=== PATIENT | female | born 1985 | race American Indian/Alaskan Native ===

== ENCOUNTER 2019-01-12 10:50 | Emergency (ER) | payer OTHER ==
--- NOTE | 2019-01-12 11:53 | Event Note ---
ED Screening Note Date of service: 01/12/19 Time: 11:47 ED Screening Note: 33 y/o female comes in for ruQ pain. Has N/V. Was able to eat can peaches. Rash to right side. This initial assessment/diagnostic orders/clinical plan/treatment(s) is/are subject to change based on patients health status, clinical progression and re- assessment by fellow clinical providers in the ED. Further treatment and workup at subsequent clinical providers discretion. Patient/guardian urged not to elope from the ED as their condition may be serious if not clinically assessed and managed. Initial orders include:
[2019-01-12] MEDS ORDERED: TORADOL IV STA (12:57)
[2019-01-12] MEDS ORDERED: ZOFRAN IV STA (12:57)
[2019-01-12] MEDS ORDERED: NACL 0.9% 1000 ML 1,000 ML IV ONE (12:57)
[2019-01-12 14:16] LABS: Color,Urine Yellow (Yellow)
[2019-01-12 14:17] LABS: Bilirubin,Urine NEG (Negative); Blood,Urine MOD (Negative); Mucus,Urine 3+ /HPF
[2019-01-12 14:22] LABS: HCG Qualitative,Urine Negative (Negative)
[2019-01-12 14:30] LABS: Basophils % (Auto) 0.2 % (0.0-1.8); Eosinophils % (Auto) 1.9 % (0.0-4.3); Hematocrit 33.9 % (30.3-42.9); Hemoglobin 11.7 gm/dl (10.1-14.3); Lymphocytes # (Auto) 0.9 K/mm3 (1.2-5.4); Lymphocytes % (Auto) 34.3 % (13.4-35.0); Mean Corpuscular HGB Conc 35 % (30-34); Mean Corpuscular Volume 96 fl (79-97); Monocytes # (Auto) 0.3 K/mm3 (0.0-0.8); Monocytes % (Auto) 13.4 % (0.0-7.3); Platelet Count 206 K/mm3 (140-440); Red Blood Count 3.54 M/mm3 (3.65-5.03); Red Cell Distribution Width 12.9 % (13.2-15.2)
[2019-01-12 14:36] LABS: Alanine Aminotransferase 8 units/L (7-56); Albumin 3.9 g/dL (3.9-5); BUN/Creatinine Ratio 13; Blood Urea Nitrogen 8 mg/dL (7-17); Calcium 9.2 mg/dL (8.4-10.2); Hemolysis Index 19
--- NOTE | 2019-01-12 14:53 | Emergency Department Report ---
ED General Adult HPI - General Chief complaint: Abdominal Pain Stated complaint: ABD PAIN/RASH Time Seen by Provider: 01/12/19 11:47 Source: patient Mode of arrival: Ambulatory Limitations: No Limitations - History of Present Illness Initial comments: 33-year-old -N[place]ian female presents a day history of a vesicular flank rash and along the appears to be a dermatomal playing which is been causing some discomfort. She also reports having had having had vomited once today and having some issues with that. Discomfort is diminished dysuria as well. Post no fever, chills, sweats. No chest pain palpitations, no hemoptysis, hematemesis, hematochezia. -: Gradual Location: abdomen, pelvis Radiation: non-radiation Severity scale (0 -10): 0 Quality: aching, dull Consistency: constant Improves with: none Worsens with: none Associated Symptoms: denies: confusion, chest pain, fever/chills, headaches, loss of appetite, malaise, shortness of breath, syncope, weakness - Related Data Previous Rx's Medication Instructions Recorded Last Taken Type HYDROcodone/APAP 5-325 [[place] 1 each PO Q6HR PRN #12 tablet 08/08/13 Unknown Rx 5/325 mg] Metoclopramide HCl [Reglan] 10 mg PO Q4H #10 tablet 10/14/13 Unknown Rx Acyclovir [Zovirax Tab] 400 mg PO Q8H #30 tab 07/29/15 Unknown Rx Sulfamethoxazole/Trimethoprim 1 each PO BID #20 tablet 07/29/15 Unknown Rx [Bactrim DS TAB] Acyclovir [Zovirax Tab] 800 mg PO 5XD #40 tablet 01/12/19 Unknown Rx Phenazopyridine [Pyridium] 200 mg PO PC #9 tablet 01/12/19 Unknown Rx Sulfamethoxazole/Trimethoprim 1 each PO BID #20 tablet 01/12/19 Unknown Rx [Bactrim Ds] Allergies Allergy/AdvReac Type Severity Reaction Status Date / Time apple AdvReac "TONGUE Verified 01/12/19 11:23 BROKE OUT; ITCHING" ED Review of Systems ROS: Stated complaint: ABD PAIN/RASH Other details as noted in HPI Comment: All other systems reviewed and negative ED Past Medical Hx - Past Medical History Hx Hypertension: Yes Hx HIV: Yes Additional medical history: ECZEMA - Surgical History Additional Surgical History: right leg-femur fx. - Social History Smoking Status: Current Every Day Smoker Substance Use Type: None, Marijuana - Medications Home Medications: Home Medications Medication Instructions Recorded Confirmed Last Taken Type HYDROcodone/APAP 5-325 [[place] 1 each PO Q6HR PRN #12 tablet 08/08/13 Unknown Rx 5/325 mg] Metoclopramide HCl [Reglan] 10 mg PO Q4H #10 tablet 10/14/13 Unknown Rx Acyclovir [Zovirax Tab] 400 mg PO Q8H #30 tab 07/29/15 Unknown Rx Sulfamethoxazole/Trimethoprim 1 each PO BID #20 tablet 07/29/15 Unknown Rx [Bactrim DS TAB] Acyclovir [Zovirax Tab] 800 mg PO 5XD #40 tablet 01/12/19 Unknown Rx Phenazopyridine [Pyridium] 200 mg PO PC #9 tablet 01/12/19 Unknown Rx Sulfamethoxazole/Trimethoprim 1 each PO BID #20 tablet 01/12/19 Unknown Rx [Bactrim Ds] ED Physical Exam - General Limitations: No Limitations General appearance: alert, in no apparent distress - Head Head exam: Present: atraumatic, normocephalic - Eye Eye exam: Present: normal appearance - ENT ENT exam: Present: mucous membranes moist - Neck Neck exam: Present: normal inspection - Respiratory Respiratory exam: Present: normal lung sounds bilaterally. Absent: respiratory distress, stridor - Cardiovascular Cardiovascular Exam: Present: regular rate, normal rhythm. Absent: systolic murmur, diastolic murmur, rubs, gallop - GI/Abdominal GI/Abdominal exam: Present: soft, tenderness (some tenderness with palpation to the suprapubic area. Mild), normal bowel sounds, other (no no culling sign, no Rovsing, no g Chaves Warner). Absent: guarding, rebound - Extremities Exam Extremities exam: Present: normal inspection - Back Exam Back exam: Present: normal inspection. Absent: CVA tenderness (R), CVA tenderness (L) - Neurological Exam Neurological exam: Present: alert, oriented X3, CN II-XII intact - Psychiatric Psychiatric exam: Present: normal affect, normal mood - Skin Skin exam: Present: warm, dry, erythema, vesicles (vesicular rash along the right flank along one dermatome line. Some tenderness with palpation.). Absent: rash ED Course Vital Signs 01/12/19 01/12/19 01/12/19 11:47 13:15 13:29 Temperature 99 F 99.1 F Pulse Rate 86 70 Respiratory 18 16 18 Rate Blood Pressure 141/87 Blood Pressure 138/85 [Left] O2 Sat by Pulse 100 100 Oximetry - Reevaluation(s) Reevaluation #1: 01/12/19 14:59 She reports improvement in her overall feeling of decrease in the pain after then provided with medications and IV fluids. I did discuss the findings of her labs and plan of care. ED Medical Decision Making - Lab Data Result diagrams: 01/12/19 12:33 01/12/19 12:33 Critical care attestation.: If time is entered above; I have spent that time in minutes in the direct care of this critically ill patient, excluding procedure time. ED Disposition Clinical Impression: Shingles, UTI (urinary tract infection) Disposition: - TO HOME OR SELFCARE Is pt being admited?: No Does the pt Need Aspirin: No Condition: Stable Instructions: Abdominal Pain (ED), Phenazopyridine (By mouth), Urinary Tract Infection in Women (ED), Dysuria (ED), Herpes Zoster (ED) Prescriptions: Sulfamethoxazole/Trimethoprim [Bactrim Ds] 1 each PO BID #20 tablet Phenazopyridine [Pyridium] 200 mg PO PC #9 tablet Acyclovir [Zovirax Tab] 800 mg PO 5XD #40 tablet Referrals: CHITO HUNT MD [Primary Care Provider] - 3-5 Days
[2019-01-12 15:33] VITALS: BP 138/87
== END 2019-01-12 15:33 | disposition home or self-care (01) ==
LOC: ED 10:50
DX: N39.0 Urinary tract infection, site not specified (principal); B02.9 Zoster without complications; Z91.018 Allergy to other foods
CPT/HCPCS: 36415; 80053; 81001; 81025; 83690; 85025; 87086; 96361; 96374; 96375; 99283; J1885; J2405; J7030

== ENCOUNTER 2020-09-14 08:12 | Emergency (ER) | payer SELFPAY ==
[2020-09-14 08:33] VITALS: BP 129/99
[2020-09-14] MEDS ORDERED: IBUPROFEN 600 MG TAB PO ONE (10:18)
[2020-09-14] MEDS ORDERED: LIDOCAINE-MPF (1%) 10 MG/1 ML VIAL 5 ML INFILTRATI ONE (10:18)
[2020-09-14] MEDS ORDERED: traMADol 50 MG TAB PO ONE (10:18)
--- NOTE | 2020-09-14 10:55 | Emergency Department Report ---
Abscess Boil HPI - HPI Chief Complaint: Skin/Abscess/Foreign Body Stated Complaint: BOIL RT INNER THIGH Time Seen by Provider: 09/14/20 10:17 Duration: 3 Days Location: Other (Right side vaginal labia) History: Yes Pain, Yes Previous History, No Fever, No Purulent Drainage, No Numbness, No Foreign Body, No Insect Bite HPI: 34-year-old -Malaysian female presents to the emergency room for abscess to her right labia area x3 days. Patient states that it has been there is a small bump and has not bothered her but in the last 3 days it has become enlarged and more painful. Patient states that the pain is a 10 out of 10 she is not able to sit comfortably and walking makes it worse. Patient states that she is been sitting in warm baths and needs hot compress to the area. Patient denies any known drug allergies. Currently takes no medications on a daily basis. Does have a past medical history of herpes. Home Medications: Previous Rx's Medication Instructions Recorded Last Taken Type HYDROcodone/APAP 5-325 [[place] 1 each PO Q6HR PRN #12 tablet 08/08/13 Unknown Rx 5/325 mg] Metoclopramide HCl [Reglan] 10 mg PO Q4H #10 tablet 10/14/13 Unknown Rx Acyclovir [Zovirax Tab] 400 mg PO Q8H #30 tab 07/29/15 Unknown Rx Sulfamethoxazole/Trimethoprim 1 each PO BID #20 tablet 07/29/15 Unknown Rx [Bactrim DS TAB] Acyclovir [Zovirax Tab] 800 mg PO 5XD #40 tablet 01/12/19 Unknown Rx Phenazopyridine [Pyridium] 200 mg PO PC #9 tablet 01/12/19 Unknown Rx Sulfamethoxazole/Trimethoprim 1 each PO BID #20 tablet 01/12/19 Unknown Rx [Bactrim Ds] Ibuprofen [Motrin 800 MG tab] 800 mg PO Q8HR PRN #30 tablet 09/14/20 Unknown Rx cephALEXin [Keflex] 500 mg PO Q12HR 10 Days #20 cap 09/14/20 Unknown Rx traMADoL [Ultram 50 MG tab] 50 mg PO Q6HR PRN #12 tablet 09/14/20 Unknown Rx Allergies/Adverse Reactions: Allergies Allergy/AdvReac Type Severity Reaction Status Date / Time apple AdvReac "TONGUE Verified 01/12/19 11:23 BROKE OUT; ITCHING" ED Review of Systems ROS: Stated complaint: BOIL RT INNER THIGH Other details as noted in HPI ED Past Medical Hx - Past Medical History Previous Medical History?: Yes Hx Hypertension: Yes Hx HIV: Yes Additional medical history: ECZEMA - Surgical History Past Surgical History?: Yes Additional Surgical History: right leg-femur fx. - Social History Smoking Status: Current Every Day Smoker Substance Use Type: None, Marijuana - Medications Home Medications: Home Medications Medication Instructions Recorded Confirmed Last Taken Type HYDROcodone/APAP 5-325 [[place] 1 each PO Q6HR PRN #12 tablet 08/08/13 Unknown Rx 5/325 mg] Metoclopramide HCl [Reglan] 10 mg PO Q4H #10 tablet 10/14/13 Unknown Rx Acyclovir [Zovirax Tab] 400 mg PO Q8H #30 tab 07/29/15 Unknown Rx Sulfamethoxazole/Trimethoprim 1 each PO BID #20 tablet 07/29/15 Unknown Rx [Bactrim DS TAB] Acyclovir [Zovirax Tab] 800 mg PO 5XD #40 tablet 01/12/19 Unknown Rx Phenazopyridine [Pyridium] 200 mg PO PC #9 tablet 01/12/19 Unknown Rx Sulfamethoxazole/Trimethoprim 1 each PO BID #20 tablet 01/12/19 Unknown Rx [Bactrim Ds] Ibuprofen [Motrin 800 MG tab] 800 mg PO Q8HR PRN #30 tablet 09/14/20 Unknown Rx cephALEXin [Keflex] 500 mg PO Q12HR 10 Days #20 cap 09/14/20 Unknown Rx traMADoL [Ultram 50 MG tab] 50 mg PO Q6HR PRN #12 tablet 09/14/20 Unknown Rx ED Abscess Boil Physical Exam - Exam General: Vital signs noted. No distress. Alert and acting appropriately. I & D Note - I & D Note I & D Note: I & D Note: Under sterile field, I used Betadine to cleanse the area. I then used 2% lidocaine plain with 25-gauge 5/8 needle to inject area for anesthetic purposes. Total volume injected 3 mL. I then used an 11 blade to make a 1 cm incision. About 2 mL's of purulent drainage has been noted. I then used a hemostat to break the abscess formation. I then used sterile 0.9% normal saline flush to flush the wound with total volume of 40 mL used. I then put a 1/4 iodoform packing to the incision. A sterile 4 x 4 with tape has been applied as dressing. Bleeding is under control. Patient tolerated the procedure well with no signs of distress noted. ED Course Vital Signs 09/14/20 08:30 Temperature 98.0 F Pulse Rate 86 Respiratory 17 Rate Blood Pressure 129/99 [Right] O2 Sat by Pulse 100 Oximetry Critical care attestation.: If time is entered above; I have spent that time in minutes in the direct care of this critically ill patient, excluding procedure time. ED Medical Decision Making - Medical Decision Making 34-year-old -Malaysian female presents to the emergency room for abscess to her right labia area x3 days. Patient states that it has been there is a small bump and has not bothered her but in the last 3 days it has become enlarged and more painful. Patient states that the pain is a 10 out of 10 she is not able to sit comfortably and walking makes it worse. Patient states that she is been sitting in warm baths and needs hot compress to the area. Patient denies any known drug allergies. Currently takes no medications on a daily basis. Does have a past medical history of herpes. Tramadol ibuprofen. Incision and drainage of labial abscess. Patient be discharged home on Keflex and tramadol and ibuprofen. Instructions on how to do a sitz bath. Referral to [facility]. ED Disposition Clinical Impression: Abscess of labia majora Disposition: DC-01 TO HOME OR SELFCARE Is pt being admited?: No Does the pt Need Aspirin: No Condition: Stable Instructions: Skin Abscess, [id number], How to Take a Sitz Bath Additional Instructions: Complete antibiotics as prescribed. Pain medication as needed. Do sitz bath's. Follow-up with your [facility]. Prescriptions: cephALEXin [Keflex] 500 mg PO Q12HR 10 Days #20 cap Ibuprofen [Motrin 800 MG tab] 800 mg PO Q8HR PRN #30 tablet PRN Reason: Pain , Severe (7-10) traMADoL [Ultram 50 MG tab] 50 mg PO Q6HR PRN #12 tablet PRN Reason: Pain , Severe (7-10) Referrals: [facility] [Provider Group] - 3-5 Days [facility] [Provider Group] - 3-5 Days [facility] [Provider Group] - 3-5 Days Forms: Work/School Release Form(ED)
== END 2020-09-14 12:00 | disposition home or self-care (01) ==
LOC: ED 08:12
DX: N76.4 Abscess of vulva (principal); I10 Essential (primary) hypertension; Z21 Asymptomatic human immunodeficiency virus [HIV] infection status; F17.200 Nicotine dependence, unspecified, uncomplicated; F12.10 Cannabis abuse, uncomplicated; Z79.899 Other long term (current) drug therapy; Z91.018 Allergy to other foods
CPT/HCPCS: 99282

== ENCOUNTER 2021-09-16 08:52 | Emergency (ER) | payer OTHER ==
[2021-09-16 09:24] VITALS: BP 138/89
[2021-09-16] MEDS ORDERED: IBUPROFEN 600 MG TAB PO ONE (12:29)
[2021-09-16] MEDS ORDERED: SULFAMETHOXAZOLE/TRIMETHOPRIM 800/160MG DS TAB PO ONE (12:29)
[2021-09-16] MEDS ORDERED: HYDROcodone/ACETAMINOPHEN 7.5-325MG TAB PO ONE (12:29)
[2021-09-16] MEDS ORDERED: ONDANSETRON 4 MG ODT TAB PO ONE (12:30)
[2021-09-16] MEDS ORDERED: CLINDAMYCIN 300 MG CAP PO ONE (12:30)
--- NOTE | 2021-09-16 15:23 | Emergency Department Report ---
ED General Adult HPI - General Chief complaint: Skin/Abscess/Foreign Body Stated complaint: BOIL LT AXILLA Source: patient Mode of arrival: Ambulatory Limitations: No Limitations - History of Present Illness Initial comments: Patient is a 35-year-old -[place] female with a history of HIV, chronic eczema and hypertension who presented to the ED with complaint of acute onset persistent painful swollen mild erythematous maculopapular fluctuant rash on left axilla for the last 5 days. Patient states that the pain is constant and persistent and that in the last 2 days she has not been able to eat or sleep because of worsening pain. Patient denies dizziness, syncope, nausea and vomiting, fever, chills, cough, chest pain or shortness of breath, numbness and tingling or weakness of left arm and neck pain. MD Complaint: Left axilla painful swollen rash -: Sudden, days(s) (5) Location: upper extremity Radiation: non-radiation Severity scale (0 -10): 8 Quality: aching, sharp Consistency: constant Improves with: none Worsens with: none Associated Symptoms: denies other symptoms, rash (Swollen, painful left axillary rash). denies: confusion, chest pain, cough, diaphoresis, fever/chills, headaches, loss of appetite, malaise, nausea/vomiting, seizure, shortness of breath, syncope, weakness Treatments Prior to Arrival: none - Related Data Previous Rx's Medication Instructions Recorded Last Taken Type HYDROcodone/APAP 5-325 [[place] 1 each PO Q6HR PRN #12 tablet 08/08/13 Unknown Rx 5/325 mg] Metoclopramide HCl [Reglan] 10 mg PO Q4H #10 tablet 10/14/13 Unknown Rx Acyclovir [Zovirax Tab] 400 mg PO Q8H #30 tab 07/29/15 Unknown Rx Acyclovir [Zovirax Tab] 800 mg PO 5XD #40 tablet 01/12/19 Unknown Rx Phenazopyridine [Pyridium] 200 mg PO PC #9 tablet 01/12/19 Unknown Rx Sulfamethoxazole/Trimethoprim 1 each PO BID #20 tablet 01/12/19 Unknown Rx [Bactrim Ds] cephALEXin [Keflex] 500 mg PO Q12HR 10 Days #20 cap 09/14/20 Unknown Rx Clindamycin [Clindamycin CAP] 300 mg PO Q8H #30 cap 09/16/21 Unknown Rx Ibuprofen [Motrin 800 MG tab] 800 mg PO Q8HR PRN #30 tablet 09/16/21 Unknown Rx Sulfamethoxazole/Trimethoprim 1 each PO Q12H #20 tablet 09/16/21 Unknown Rx [Bactrim DS TAB] traMADoL [Ultram 50 MG tab] 50 mg PO Q6HR PRN #12 tablet 09/16/21 Unknown Rx Allergies Allergy/AdvReac Type Severity Reaction Status Date / Time apple AdvReac "TONGUE Verified 01/12/19 11:23 BROKE OUT; ITCHING" ED Review of Systems ROS: Stated complaint: BOIL LT AXILLA Other details as noted in HPI Constitutional: denies: chills, fever Eyes: denies: eye pain, eye discharge, vision change ENT: denies: ear pain, throat pain Respiratory: denies: cough, shortness of breath, wheezing Cardiovascular: denies: chest pain, palpitations Endocrine: no symptoms reported Gastrointestinal: denies: abdominal pain, nausea, diarrhea Genitourinary: denies: urgency, dysuria, discharge Musculoskeletal: denies: back pain, joint swelling, arthralgia Skin: rash (Swelling, painful mild erythematous rash on left axilla), change in color. denies: lesions Neurological: denies: headache, weakness, paresthesias Psychiatric: denies: anxiety, depression Hematological/Lymphatic: denies: easy bleeding, easy bruising ED Past Medical Hx - Past Medical History Hx Hypertension: Yes Hx HIV: Yes Additional medical history: ECZEMA - Surgical History Additional Surgical History: right leg-femur fx. - Social History Smoking Status: Current Every Day Smoker Substance Use Type: Marijuana - Medications Home Medications: Home Medications Medication Instructions Recorded Confirmed Last Taken Type HYDROcodone/APAP 5-325 [[place] 1 each PO Q6HR PRN #12 tablet 08/08/13 Unknown Rx 5/325 mg] Metoclopramide HCl [Reglan] 10 mg PO Q4H #10 tablet 10/14/13 Unknown Rx Acyclovir [Zovirax Tab] 400 mg PO Q8H #30 tab 07/29/15 Unknown Rx Acyclovir [Zovirax Tab] 800 mg PO 5XD #40 tablet 01/12/19 Unknown Rx Phenazopyridine [Pyridium] 200 mg PO PC #9 tablet 01/12/19 Unknown Rx Sulfamethoxazole/Trimethoprim 1 each PO BID #20 tablet 01/12/19 Unknown Rx [Bactrim Ds] cephALEXin [Keflex] 500 mg PO Q12HR 10 Days #20 cap 09/14/20 Unknown Rx Clindamycin [Clindamycin CAP] 300 mg PO Q8H #30 cap 09/16/21 Unknown Rx Ibuprofen [Motrin 800 MG tab] 800 mg PO Q8HR PRN #30 tablet 09/16/21 Unknown Rx Sulfamethoxazole/Trimethoprim 1 each PO Q12H #20 tablet 09/16/21 Unknown Rx [Bactrim DS TAB] traMADoL [Ultram 50 MG tab] 50 mg PO Q6HR PRN #12 tablet 09/16/21 Unknown Rx ED Physical Exam - General Limitations: No Limitations General appearance: alert, in no apparent distress - Head Head exam: Present: atraumatic, normocephalic, normal inspection - Eye Eye exam: Present: normal appearance, PERRL, EOMI Pupils: Present: normal accommodation - ENT ENT exam: Present: normal exam, normal orophraynx, mucous membranes moist, TM's normal bilaterally, normal external ear exam - Neck Neck exam: Present: normal inspection, full ROM. Absent: tenderness - Respiratory Respiratory exam: Present: normal lung sounds bilaterally. Absent: respiratory distress, wheezes, rales, chest wall tenderness, accessory muscle use, decreased breath sounds - Cardiovascular Cardiovascular Exam: Present: regular rate, normal rhythm, normal heart sounds. Absent: systolic murmur, diastolic murmur, rubs, gallop - GI/Abdominal GI/Abdominal exam: Present: soft, normal bowel sounds. Absent: tenderness, guarding, hyperactive bowel sounds, hypoactive bowel sounds, organomegaly, mass - Extremities Exam Extremities exam: Present: normal inspection, full ROM, normal capillary refill. Absent: tenderness, pedal edema, joint swelling, calf tenderness - Back Exam Back exam: Present: normal inspection, full ROM. Absent: tenderness, CVA tenderness (R), CVA tenderness (L), muscle spasm, paraspinal tenderness - Neurological Exam Neurological exam: Present: alert, oriented X3, CN II-XII intact, normal gait, reflexes normal - Psychiatric Psychiatric exam: Present: normal affect, normal mood - Skin Skin exam: Present: warm, dry, intact, normal color, rash (Swollen, tender erythematous maculopapular fluctuant rash on left axilla), erythema ED Course Vital Signs 09/16/21 09:19 Temperature 98.7 F Pulse Rate 94 H Respiratory 16 Rate Blood Pressure 138/89 O2 Sat by Pulse 100 Oximetry - I & D Left Arm Type of Procedure: Simple Site: Left axilla Blade Size: 11 I & D Procedure: betadine prep, sterile drapes applied, sterile dressing applied, gauze wick placed Progress: The area was cleaned with normal saline and Betadine solutions. Normal saline 1% solution was infiltrated around the area for local anesthesia. When anesthesia was fully achieved, the area was incised and drained with scalpel #11 blade. Copious thick purulent malodorous discharge drained from the wound. The wound was cleaned extensively and debrided with normal saline solutions, and the flocculation's were broken with hemostat. The wound was then packed with iodoform quarter inch, for a total of 35 cm. The wound was then dressed appropriately with 4 x 4 gauze and Tegaderm. Patient tolerated procedure well. ED Medical Decision Making - Medical Decision Making This is a 35-year-old -[place] female with a history of HIV, chronic eczema and hypertension who presented to the ED with complaint of acute onset persistent painful swollen mild erythematous maculopapular fluctuant rash on left axilla for the last 5 days. Patient states that the pain is constant and persistent and that in the last 2 days she has not been able to eat or sleep because of worsening pain. In the ED, patient is alert and oriented x3 and is not in any distress. Patient was treated for pain in the ED and also given initial oral antibiotics in the ED. The area was cleaned with normal saline and Betadine solutions. Normal saline 1% solution was infiltrated around the area for local anesthesia. When anesthesia was fully achieved, the area was incised and drained with scalpel #11 blade. Copious thick purulent malodorous discharge drained from the wound. The wound was cleaned extensively and debrided with normal saline solutions, and the flocculation's were broken with hemostat. The wound was then packed with iodoform quarter inch, for a total of 35 cm. The wound was then dressed appropriately with 4 x 4 gauze and Tegaderm. Patient tolerated procedure well. On reevaluation, patient's pain is well controlled with medication. Patient was discharged home on pain medications and antibiot ics and advised to return to the ED in 2 days for wound recheck and packing removal. Patient was advised to follow-up with her primary care physician in 7 to 10 days for reevaluation or return to the ED immediately if symptoms get worse. Patient was otherwise advised return to the ED immediately if symptoms get worse. - Differential Diagnosis Cellulitis; cutaneous abscess; folliculitis Critical care attestation.: If time is entered above; I have spent that time in minutes in the direct care of this critically ill patient, excluding procedure time. ED Disposition Clinical Impression: Cellulitis of left axilla, Cutaneous abscess of left axilla, Acute folliculitis Disposition: HOME / SELF CARE / HOMELESS Is pt being admited?: No Does the pt Need Aspirin: No Condition: Stable Instructions: Skin Abscess, [id number], Cellulitis, Adult, [id number], Incision and Drainage, Care After, Folliculitis Additional Instructions: Take medication with food, drink plenty of fluids and follow-up with the primary care physician in 7 to 10 days for reevaluation. Return to the ED in 2 days for wound recheck and packing removal. Otherwise return to the ED immediately if symptoms get worse. Prescriptions: Sulfamethoxazole/Trimethoprim [Bactrim DS TAB] 1 each PO Q12H #20 tablet Clindamycin [Clindamycin CAP] 300 mg PO Q8H #30 cap Ibuprofen [Motrin 800 MG tab] 800 mg PO Q8HR PRN #30 tablet PRN Reason: Pain , Severe (7-10) traMADoL [Ultram 50 MG tab] 50 mg PO Q6HR PRN #12 tablet PRN Reason: Pain , Severe (7-10) Referrals: KASEY VEGA MD [Primary Care Provider] - 3-5 Days [facility] [Outside] - 7-10 days Time of Disposition: 15:27 Print Language: [place]
== END 2021-09-16 15:52 | disposition home or self-care (01) ==
LOC: ED 08:52
DX: L03.112 Cellulitis of left axilla (principal); L02.412 Cutaneous abscess of left axilla; L73.9 Follicular disorder, unspecified; F17.200 Nicotine dependence, unspecified, uncomplicated; I10 Essential (primary) hypertension; F12.90 Cannabis use, unspecified, uncomplicated; Z91.018 Allergy to other foods
CPT/HCPCS: 99282; J3490; Q0162

== ENCOUNTER 2021-09-18 19:51 | Emergency (ER) | payer OTHER ==
--- NOTE | 2021-09-19 05:54 | Emergency Department Report ---
ED General Adult HPI - General Chief complaint: Skin/Abscess/Foreign Body Stated complaint: PACKING REMOVED BY CECILY HAN Source: patient Mode of arrival: Ambulatory Limitations: No Limitations - History of Present Illness Initial comments: Patient is a 35-year-old -[place] female with history of chronic eczema and HIV who presents to the ED for wound recheck and packing removal from a previously incised and drained abscess wound in the left axilla 2 days ago. Patient is currently taking oral antibiotics and pain medications as needed. Patient states that the pain has significantly improved such that she is able to perform active range of motion of the left arm and also able to walk at her job with no difficulties. Patient denies fever, chills, nausea and vomiting, dizziness, syncope, headache, chest pain or shortness of breath, neck pain or numbness and tingling or weakness of upper extremities bilaterally. MD Complaint: left axilla abscess wound recheck -: Sudden, week(s) (1) Location: upper extremity (left axilla) Radiation: non-radiation Severity scale (0 -10): 7 Quality: aching, dull Consistency: constant Improves with: none Worsens with: movement Associated Symptoms: denies other symptoms, rash (Open abscess wound on left axilla, previously packed with iodoform gauze). denies: confusion, chest pain, cough, diaphoresis, fever/chills, headaches, malaise, nausea/vomiting Treatments Prior to Arrival: NSAID, other (Oral antibiotics) - Related Data Previous Rx's Medication Instructions Recorded Last Taken Type HYDROcodone/APAP 5-325 [[place] 1 each PO Q6HR PRN #12 tablet 08/08/13 Unknown Rx 5/325 mg] Metoclopramide HCl [Reglan] 10 mg PO Q4H #10 tablet 10/14/13 Unknown Rx Acyclovir [Zovirax Tab] 400 mg PO Q8H #30 tab 07/29/15 Unknown Rx Acyclovir [Zovirax Tab] 800 mg PO 5XD #40 tablet 01/12/19 Unknown Rx Phenazopyridine [Pyridium] 200 mg PO PC #9 tablet 01/12/19 Unknown Rx Sulfamethoxazole/Trimethoprim 1 each PO BID #20 tablet 01/12/19 Unknown Rx [Bactrim Ds] cephALEXin [Keflex] 500 mg PO Q12HR 10 Days #20 cap 09/14/20 Unknown Rx Clindamycin [Clindamycin CAP] 300 mg PO Q8H #30 cap 09/16/21 Unknown Rx Ibuprofen [Motrin 800 MG tab] 800 mg PO Q8HR PRN #30 tablet 09/16/21 Unknown Rx Sulfamethoxazole/Trimethoprim 1 each PO Q12H #20 tablet 09/16/21 Unknown Rx [Bactrim DS TAB] traMADoL [Ultram 50 MG tab] 50 mg PO Q6HR PRN #12 tablet 09/16/21 Unknown Rx Allergies Allergy/AdvReac Type Severity Reaction Status Date / Time apple AdvReac "TONGUE Verified 01/12/19 11:23 BROKE OUT; ITCHING" ED Review of Systems ROS: Stated complaint: PACKING REMOVED BY CECILY HAN Other details as noted in HPI Constitutional: denies: chills, fever Eyes: denies: eye pain, eye discharge, vision change ENT: denies: ear pain, throat pain Respiratory: denies: cough, shortness of breath, wheezing Cardiovascular: denies: chest pain, palpitations Endocrine: no symptoms reported Gastrointestinal: denies: abdominal pain, nausea, diarrhea Genitourinary: denies: urgency, dysuria, discharge Musculoskeletal: denies: back pain, joint swelling, arthralgia Skin: rash (Open abscess wound with iodoform packing in the left axilla). denies: lesions Neurological: denies: headache, weakness, paresthesias Psychiatric: denies: anxiety, depression Hematological/Lymphatic: denies: easy bleeding, easy bruising ED Past Medical Hx - Past Medical History Hx Hypertension: Yes Hx HIV: Yes Additional medical history: ECZEMA - Surgical History Additional Surgical History: right leg-femur fx. - Social History Smoking Status: Current Every Day Smoker Substance Use Type: Marijuana - Medications Home Medications: Home Medications Medication Instructions Recorded Confirmed Last Taken Type HYDROcodone/APAP 5-325 [[place] 1 each PO Q6HR PRN #12 tablet 08/08/13 Unknown Rx 5/325 mg] Metoclopramide HCl [Reglan] 10 mg PO Q4H #10 tablet 10/14/13 Unknown Rx Acyclovir [Zovirax Tab] 400 mg PO Q8H #30 tab 07/29/15 Unknown Rx Acyclovir [Zovirax Tab] 800 mg PO 5XD #40 tablet 01/12/19 Unknown Rx Phenazopyridine [Pyridium] 200 mg PO PC #9 tablet 01/12/19 Unknown Rx Sulfamethoxazole/Trimethoprim 1 each PO BID #20 tablet 01/12/19 Unknown Rx [Bactrim Ds] cephALEXin [Keflex] 500 mg PO Q12HR 10 Days #20 cap 09/14/20 Unknown Rx Clindamycin [Clindamycin CAP] 300 mg PO Q8H #30 cap 09/16/21 Unknown Rx Ibuprofen [Motrin 800 MG tab] 800 mg PO Q8HR PRN #30 tablet 09/16/21 Unknown Rx Sulfamethoxazole/Trimethoprim 1 each PO Q12H #20 tablet 09/16/21 Unknown Rx [Bactrim DS TAB] traMADoL [Ultram 50 MG tab] 50 mg PO Q6HR PRN #12 tablet 09/16/21 Unknown Rx ED Physical Exam - General Limitations: No Limitations General appearance: alert, in no apparent distress - Head Head exam: Present: atraumatic, normocephalic, normal inspection - Eye Eye exam: Present: normal appearance, PERRL, EOMI Pupils: Present: normal accommodation - ENT ENT exam: Present: normal exam, normal orophraynx, mucous membranes moist, TM's normal bilaterally, normal external ear exam - Neck Neck exam: Present: normal inspection, full ROM. Absent: tenderness - Respiratory Respiratory exam: Present: normal lung sounds bilaterally. Absent: respiratory distress, wheezes, rales, chest wall tenderness, accessory muscle use, prolonged expiratory, other - Cardiovascular Cardiovascular Exam: Present: regular rate, normal rhythm, normal heart sounds. Absent: systolic murmur, diastolic murmur, rubs, gallop - GI/Abdominal GI/Abdominal exam: Present: soft, normal bowel sounds. Absent: tenderness, guarding, rebound, hyperactive bowel sounds, hypoactive bowel sounds, organomegaly, mass - Extremities Exam Extremities exam: Present: normal inspection, full ROM, normal capillary refill. Absent: tenderness - Back Exam Back exam: Present: normal inspection, full ROM. Absent: tenderness, CVA tenderness (R), CVA tenderness (L), muscle spasm, paraspinal tenderness, vertebral tenderness - Neurological Exam Neurological exam: Present: alert, oriented X3, CN II-XII intact, normal gait, reflexes normal - Psychiatric Psychiatric exam: Present: normal affect, normal mood - Skin Skin exam: Present: warm, dry, intact, normal color, rash, other (Open abscess wound on left axilla with iodoform packing in place) ED Course Vital Signs 09/18/21 09/19/21 20:05 05:12 Temperature 98.2 F Pulse Rate 91 H 89 Respiratory 16 14 Rate Blood Pressure 116/78 Blood Pressure 120/82 [Right] O2 Sat by Pulse 98 100 Oximetry ED Medical Decision Making - Medical Decision Making This is a 35-year-old -[place] female with history of chronic eczema and HIV who presents to the ED for wound recheck and packing removal from a previously incised and drained abscess wound in the left axilla 2 days ago. Patient is currently taking oral antibiotics and pain medications as needed. Patient states that the pain has significantly improved such that she is able to perform active range of motion of the left arm and also able to walk at her job with no difficulties. In the ED, patient is alert and oriented x3 and is not in any distress. Patient is hemodynamically stable. The wound was examined and cleaned and the iodoform packing removed successfully. The wound was then debrided with normal saline and a new 4 x 4 gauze and Tegaderm gauze were applied to cover the wound. Patient tolerated procedure well. Patient was advised to continue taking the previously prescribed antibiotics, and pain medication as needed. Patient was advised to follow-up with her primary care physician in 7 to 10 days for reevaluation or return to the ED immediately if symptoms get worse. - Differential Diagnosis Abscess; cellulitis; folliculitis Critical care attestation.: If time is entered above; I have spent that time in minutes in the direct care of this critically ill patient, excluding procedure time. ED Disposition Clinical Impression: Acute folliculitis, Cutaneous abscess of left axilla, Encounter for wound re- check, Encounter for removal of abscess packing Disposition: 01 HOME / SELF CARE / HOMELESS Is pt being admited?: No Does the pt Need Aspirin: No Condition: Stable Instructions: Skin Abscess, [id number], Incision Care, Adult, [id number], Incision and Drainage, Care After Additional Instructions: Continue taking the previously prescribed antibiotics and pain medications as needed. Follow-up with your primary care physician in 7 to 10 days for reevaluation. Return to the ED immediately if symptoms get worse. Referrals: [facility] [Provider Group] - 7-10 days Time of Disposition: 05:54 Print Language: [place]
[2021-09-19 06:21] VITALS: BP 116/76
== END 2021-09-19 06:21 | disposition home or self-care (01) ==
LOC: ED 19:51
DX: L66.2 Folliculitis decalvans (principal); L02.412 Cutaneous abscess of left axilla; Z48.00 Encounter for change or removal of nonsurgical wound dressing; F17.200 Nicotine dependence, unspecified, uncomplicated; F12.90 Cannabis use, unspecified, uncomplicated; I10 Essential (primary) hypertension
CPT/HCPCS: 99282